=== PATIENT | female | born 1935 | race African-American/Black ===

== ENCOUNTER 2017-05-22 10:02 | Emergency (ER) | payer OTHER ==
[~2017-05-22] VITALS: Ht 162.6 cm; Wt 65.0 kg
[2017-05-22 13:21] VITALS: BP 132/86
== END 2017-05-22 13:24 | disposition home or self-care (01) ==
LOC: ER 10:12
DX: S40.022A Contusion of left upper arm, initial encounter (principal); V47.5XXA Car driver injured in collision with fixed or stationary object in traffic accident, initial encounter; Y93.89 Activity, other specified; Y99.8 Other external cause status; Y92.89 Other specified places as the place of occurrence of the external cause
CPT/HCPCS: 99283